=== PATIENT | female | born 1985 | race Caucasian/White ===

== ENCOUNTER 2016-10-01 20:13 | Emergency (ER) | payer SELFPAY ==
[2016-10-01] MEDS ORDERED: PREN1TAB80 PO (21:36)
== END 2016-10-01 20:17 | disposition other institution (70) ==
LOC: EMS 20:16
DX: N93.9 Abnormal uterine and vaginal bleeding, unspecified (principal); Z53.21 Procedure and treatment not carried out due to patient leaving prior to being seen by health care provider

== ENCOUNTER 2016-10-01 20:57 | Observation (INO) | payer BC ==
[~2016-10-01] VITALS: Ht 157.5 cm; Wt 81.2 kg
[2016-10-01] MEDS ORDERED: PREN1TAB80 PO (21:36)
[2016-10-01 22:10] LABS: APPEARANCE,URINE CLEAR (CLEAR); GLUCOSE, URINE (UA) NEGATIVE (NEGATIVE); KETONES,URINE NEGATIVE (NEGATIVE); LEUKOCYTE ESTERASE ,URINE SMALL (NEGATIVE); OCCULT BLOOD,URINE LARGE (NEGATIVE); PROTEIN,URINE NEGATIVE (NEGATIVE)
[2016-10-01 22:11] LABS: ADD UA MICROSCOPIC YES
[2016-10-01 22:25] LABS: RBC,URINE >100 /HPF (0-2); SQUAMOUS EPITHELIAL CELL,UR Moderate /LPF (None Seen)
== END 2016-10-01 23:15 | disposition home or self-care (01) ==
LOC: 4S 20:57
PROVIDERS: ADMIT Obstetrics & Gynecology; ATTEND Obstetrics & Gynecology
DX: O46.92 Antepartum hemorrhage, unspecified, second trimester (principal); O44.02 Complete placenta previa NOS or without hemorrhage, second trimester; O09.522 Supervision of elderly multigravida, second trimester; Z3A.20 20 weeks gestation of pregnancy
CPT/HCPCS: 36415; 59025; 76815; 80307 ×8; 81001; 86850; 86900; 86901; 87086; G0378